=== PATIENT | male | born 1960 | race African-American/Black ===

== ENCOUNTER 2024-12-20 17:40 | Inpatient (IN) | payer BC ==
[2024-12-20] MEDS ORDERED: AMLODIPINE 10 MG TAB ONE (18:52)
[2024-12-20 19:25] LABS: Absolute Basophils 0.1 K/uL (0-0.5); Absolute Eosinophils 0.2 K/uL (0-0.5); Absolute Neutrophil 3.6 K/uL (1.8-8.0); Basophils % 0.8 % (0-1.3); Hemoglobin 16.8 g/dL (13.6-17.9); Lymphocytes % 29.8 % (15.3-44.8); MCH 31.4 pg (27.0-35.0); MCHC 34.4 g/dL (32.0-36.0); MCV 91.3 fL (80-100); MPV 9.3 fL (7.6-11.3); Monocytes % 14.7 % (3.3-12.3); Neutrophils % 51.7 % (41.7-73.7); Nucleated Red Blood Cells % 0.1 % (0-0); Platelets 275 thou/uL (152-406); RBC Red Blood Cell Count 5.36 M/uL (4.33-5.43); Red Cell Distribution Width 13.1 % (12.1-15.2)
[2024-12-20 19:39] LABS: ALT/SGPT 48 U/L (16-61); AST/SGOT 27 U/L (15-37); Albumin 3.9 g/dL (3.4-5.0); Albumin/Globulin Ratio 0.8 (1.1-1.8); Alkaline Phosphatase 128 U/L (45-117); Anion Gap 6.5 mEq/L (5.0-15.0); BUN Blood Urea Nitrogen 17 mg/dL (7-18); Bicarbonate 29 mEq/L (21-32); Bilirubin Total 0.5 mg/dL (0.2-1.0); Globulin 5.1 g/dL (2.3-3.5); Glomerular Filtration Rate 54 ml/min (=/>90); Glucose Level 75 mg/dL (74-106); Potassium 3.5 mEq/L (3.5-5.1); Sodium Level 135 mEq/L (136-145)
[2024-12-20 19:40] LABS: Bilirubin Direct < 0.2 mg/dL (0-0.2); Bilirubin Indirect, Calculated 0.3 mg/dL (0.2-0.8)
[2024-12-20 19:42] LABS: Troponin High Sensitivity 338.3 pg/mL (<58.9)
[2024-12-20] MEDS ORDERED: MORPHINE 4 MG/ML SYR ONE (20:40)
[2024-12-20] MEDS ORDERED: ENOXAPARIN 100 MG/ML SYR SQ ONE (20:44)
[2024-12-20] MEDS ORDERED: HYDRALAZINE HCL 20 MG/ML VIAL ONE (20:44)
[2024-12-20] MEDS ORDERED: ENOXAPARIN 30 MG/0.3 ML SQ ONE (20:44)
[2024-12-20] MEDS ORDERED: ONDANSETRON 4 MG/2 ML VIAL ONE (20:44)
--- NOTE | 2024-12-20 20:44 | EDPHYS ---
Physician Documentation [facility] Name: Jared Nicole Age: 64 yrs Sex: Male : 1960 Arrival Date: 12/20/2024 Time: 17:40 Bed 14 Private MD: ED Physician Dani Bennett HPI: 12/20 20:51 This 64 yrs old Black Male presents to ER via Ambulatory with complaints of Dizziness, rt wants BP check. 20:51 Patient with history of hypertension, previously on amlodipine presents to the ED with rt dizziness today when he was driving. Denies chest pain and states that the dizziness has resolved, has no symptoms currently. The patient denies chest pain, shortness of breath. Wishes to have his blood pressure checked, get back on his medicines. Denies other acute complaints at this time, symptoms are moderate in severity, no other aggravating or alleviating factors.. Historical: - Allergies: 18:34 No Known Allergies; ph - Home Meds: 18:30 amlodipine 10 mg tablet daily [Active]; ph - PMHx: 18:30 Hypertensive disorder; ph - Immunization history:: Adult Immunizations unknown. - Infectious Disease History:: Denies. - Family history:: not pertinent. - Social history:: Smoking status: Patient denies any tobacco usage or history of. ROS: 20:51 Constitutional: Negative for fever, chills, and weight loss, Cardiovascular: Negative rt for chest pain, palpitations, and edema, Respiratory: Negative for shortness of breath, cough, wheezing, and pleuritic chest pain, Abdomen/GI: Negative for abdominal pain, nausea, vomiting, diarrhea, and constipation, Skin: Negative for injury, rash, and discoloration, Neuro: Negative for headache, weakness, numbness, tingling, and seizure, 20:51 MS/extremity: Positive for Gout pain, negative for injury, 20:51 Neuro: Positive for dizziness, Negative for altered mental status, Exam: 20:51 Constitutional: This is a well developed, well nourished patient who is awake, alert, rt and in no acute distress. Head/Face: Normocephalic, atraumatic. Chest/axilla: Normal chest wall appearance and motion. Nontender with no deformity. No lesions are appreciated. Cardiovascular: Regular rate and rhythm with a normal S1 and S2. No gallops, murmurs, or rubs. Normal PMI, no JVD. No pulse deficits. Respiratory: Lungs have equal breath sounds bilaterally, clear to auscultation and percussion. No rales, rhonchi or wheezes noted. No increased work of breathing, no retractions or nasal flaring. Abdomen/GI: Soft, non-tender, with normal bowel sounds. No distension or tympany. No guarding or rebound. No evidence of tenderness throughout. Skin: Warm, dry with normal turgor. Normal color with no rashes, no lesions, and no evidence of cellulitis. MS/ Extremity: Pulses equal, no cyanosis. Neurovascular intact. Full, normal range of motion. Neuro: Awake and alert, GCS 15, oriented to person, place, time, and situation. Cranial nerves II-XII grossly intact. Motor strength 5/5 in all extremities. Sensory grossly intact. Cerebellar exam normal. Normal gait. 20:51 ECG was reviewed by the Attending Physician. Vital Signs: 18:32 BP 166 / 125; Pulse 81; Resp 18; Pulse Ox 100% on R/A; Weight 116.12 kg; Height 6 ft. 3 ph in. ; 18:49 BP 172 / 88; Pulse 91; Resp 18; Pulse Ox 100% on R/A; Pain 0/10; ld1 20:04 BP 147 / 113; Pulse 81; Resp 18; Pulse Ox 98% ; Pain 3/10; bm8 20:32 BP 165 / 129; Pulse 99; Resp 20; Temp 98.4; Pulse Ox 100% ; Pain 3/10; bm8 21:48 BP 140 / 90; Pulse 87; Resp 18; Temp 98.4; Pulse Ox 97% ; Pain 3/10; bm8 23:12 BP 146 / 86; Pulse 82; Resp 15; Temp 98.4; Pulse Ox 100% ; Pain 0/10; bm8 18:32 Body Mass Index 32.00 (116.12 kg, 190.5 cm) ph 18:49 Pain Scale: Adult ld1 20:04 Pain Scale: Adult bm8 20:32 Pain Scale: Adult bm8 21:48 Pain Scale: Adult bm8 23:12 Pain Scale: Adult bm8 Yari Coma Score: 19:21 Eye Response: spontaneous(4). Motor Response: obeys commands(6). Verbal Response: bm8 oriented(5). Total: 15. 20:04 Eye Response: spontaneous(4). Motor Response: obeys commands(6). Verbal Response: bm8 oriented(5). Total: 15. 20:32 Eye Response: spontaneous(4). Motor Response: obeys commands(6). Verbal Response: bm8 oriented(5). Total: 15. 21:48 Eye Response: spontaneous(4). Motor Response: obeys commands(6). Verbal Response: bm8 oriented(5). Total: 15. 23:12 Eye Response: spontaneous(4). Motor Response: obeys commands(6). Verbal Response: bm8 oriented(5). Total: 15. MDM: 18:28 Medical Screening Exam initiated rt 20:51 Differential diagnosis: Essential hypertension, hypertensive emergency, hypertensive rt nephropathy. Data reviewed: vital signs, nurses notes, lab test result(s), EKG. Consideration of Admission/Observation Patient was admitted/placed on observation. Management of patient was discussed with the following: Hospitalist: Agrees to admit. I considered the following discharge prescriptions or medication management in the emergency department Medications were administered in the Emergency Department. See MAR. Test considered but Not performed: CT: No headache, CT scan of the head is not indicated. Care significantly affected by the following chronic conditions: Hypertension. Counseling: I had a detailed discussion with the patient and/or guardian regarding the historical points, exam findings, and any diagnostic results supporting the discharge/admit diagnosis, lab results, the need for further work-up and treatment in the hospital. Response to treatment: the patient's symptoms have mildly improved after treatment. 12/20 18:34 Order name: Basic Metabolic Panel; Complete Time: 19:46 rt 03 18:34 Order name: CBC with Diff; Complete Time: 19:46 rt 0312 18:34 Order name: LFT's; Complete Time: 19:46 rt 03 18:34 Order name: Troponin HS; Complete Time: 19:46 rt 03 21:07 Order name: Urinalysis w/ reflexes EDMS 12/20 21:07 Order name: CBC with Automated Diff EDMS 12/20 21:07 Order name: CBC with Automated Diff EDMS 12/20 21:07 Order name: Comprehensive Metabolic Panel EDMS 12/20 21:07 Order name: Comprehensive Metabolic Panel EDMS 12/20 21:09 Order name: CBC with Automated Diff EDMS 12/20 21:09 Order name: Platelet Count EDMS 12/20 21:09 Order name: PTT, Activated Partial Thromb EDMS 12/20 21:10 Order name: CBC with Automated Diff EDMS 12/20 21:10 Order name: CBC with Automated Diff EDMS 12/20 21:10 Order name: CBC with Automated Diff EDMS 12/20 21:10 Order name: CBC with Automated Diff EDMS 12/20 21:10 Order name: Platelet Count EDMS 12/20 21:10 Order name: Platelet Count EDMS 12/20 21:10 Order name: Platelet Count EDMS 12/20 21:10 Order name: Platelet Count EDMS 12/20 21:10 Order name: Platelet Count EDMS 12/20 21:10 Order name: Platelet Count EDMS / 21:10 Order name: Platelet Count EDMS 12/20 21:10 Order name: Platelet Count EDMS 12/20 21:10 Order name: PTT, Activated Partial Thromb EDMS 12/20 21:10 Order name: PTT, Activated Partial Thromb EDMS / 21:10 Order name: PTT, Activated Partial Thromb EDMS / 21:10 Order name: PTT, Activated Partial Thromb EDMS / 21:10 Order name: PTT, Activated Partial Thromb EDMS /13 02:19 Order name: Troponin High Sensitivity EDMS /13 06:12 Order name: Troponin High Sensitivity EDMS /12 18:34 Order name: EKG; Complete Time: 18:34 rt 03/12 18:34 Order name: Cardiac monitoring; Complete Time: 18:56 rt 0312 18:34 Order name: EKG - Nurse/Tech; Complete Time: 18:56 rt 03/12 18:34 Order name: IV Saline Lock; Complete Time: 18:56 rt 03/12 18:34 Order name: Labs collected and sent; Complete Time: 18:56 rt 03/12 18:34 Order name: O2 Per Protocol; Complete Time: 18:49 rt 03/12 18:34 Order name: O2 Sat Monitoring; Complete Time: 18:56 rt EC:51 Rate is 92 beats/min. Rhythm is regular, Normal Sinus Rhythm with Occasional PVCs. QRS rt [place] is Normal. SD interval is normal. QRS interval is normal. QT interval is normal. No Q waves. Clinical impression: NSR w/ Non-specific ST/T Changes. Administered Medications: 18:56 Drug: amLODIPine PO 10 mg PO once Route: PO; ld1 19:23 Follow up: Response: No adverse reaction bm8 20:52 Drug: hydrALAZINE IVP 20 mg IVP once Route: IVP; Site: right antecubital; bm8 21:50 Follow up: Response: No adverse reaction bm8 20:52 Drug: Enoxaparin Sub-Q 1 mg/kg Sub-Q once Route: Sub-Q; Site: abdomen; bm8 21:50 Follow up: Response: No adverse reaction bm8 20:52 Drug: morphine IVP or IV 4 mg IVP once over 4 mins Route: IVP; Infused Over: 4 mins; bm8 Site: right antecubital; 21:49 Follow up: Response: No adverse reaction bm8 20:52 Drug: Ondansetron IVP 4 mg IVP once; over 2 minutes Route: IVP; Site: right antecubital;bm8 21:49 Follow up: Response: No adverse reaction bm8 Disposition Summary: 12/20/24 20:43 Hospitalization Ordered Notes: Hospitalization Status: Inpatient Admission rt Provider: Edinson Ramirez rt Condition: Fair rt Problem: new rt Symptoms: have improved rt Bed/Room Type: Standard rt Location: Telemetry/MedSurg (Inpatient)(12/21/24 11:19) 6 Room Assignment: [facility](12/21/24 11:19) [facility] Diagnosis - Hypertensive emergency rt - NSTEMI rt Forms: - Medication Reconciliation Form rt - SBAR form rt - Leadership Thank You Letter rt Critical care time excluding procedures: 20:51 Critical care time: Bedside Care: 30 minutes, Consultation: 5 minutes. Total time: 35 rt minutes Signatures: Dispatcher [employer] Shanthi Christian RN RN Atiya Laguerre RN RN ld1 Dani Bennett MD MD rt Ashley Morales 6 Aditi Marquez Kiran Moran RN RN bm8 Corrections: (The following items were deleted from the chart) 18:34 18:34 BASIC METABOLIC PANEL+C.LAB.BRZ ordered. EDMS EDMS 18:34 18:34 CBC+H.LAB.BRZ ordered. EDMS EDMS 18:34 18:34 HEPATIC FUNCTION+C.LAB.BRZ ordered. EDMS EDMS 18:34 18:34 Troponin High Sensitivity+C.LAB.BRZ ordered. EDMS EDMS 12/21 01:31 12/20 20:43 Telemetry/MedSurg (Inpatient) rt [facility] 12/21 01:12/20 20:43 rt [facility] 12/21 11:19 01:31 BR ER HOLD [place] [id number] 11:19 01:31 ERHOLD- [facility]6
--- NOTE | 2024-12-20 20:44 | ER ---
Nurse's Notes [facility] Name: Jared Nicole Age: 64 yrs Sex: Male : 1960 Arrival Date: 12/20/2024 Time: 17:40 Bed 14 Private MD: Diagnosis: Hypertensive emergency;NSTEMI Presentation: 12/20 18:27 Chief complaint: Patient states: Dizziness for about 2 days, has been out of his BP ph medication for approx 2 days, denies chest pain, headache, or SOB. Coronavirus screen: Vaccine status: Patient reports receiving the 2nd dose of the covid vaccine. Ebola Screen: No symptoms or risks identified at this time. Initial Sepsis Screen: Does the patient meet any 2 criteria? No. Patient's initial sepsis screen is negative. Does the patient have a suspected source of infection? No. Patient's initial sepsis screen is negative. Risk Assessment: Do you want to hurt yourself or someone else? Patient reports no desire to harm self or others. 18:27 Method Of Arrival: Ambulatory ph 18:32 Acuity: RYAN 3 ph Historical: - Allergies: 18:34 No Known Allergies; ph - Home Meds: 18:30 amlodipine 10 mg tablet daily [Active]; ph - PMHx: 18:30 Hypertensive disorder; ph - Immunization history:: Adult Immunizations unknown. - Infectious Disease History:: Denies. - Family history:: not pertinent. - Social history:: Smoking status: Patient denies any tobacco usage or history of. Screenin:34 Abuse screen: Denies threats or abuse. ph 18:49 [facility] ED Fall Risk Assessment (Adult) History of falling in the last 3 months, ld1 including since admission No falls in past 3 months (0 pts) Confusion or Disorientation No (0 pts) Intoxicated or Sedated No (0 pts) Impaired Gait No (0 pts) Mobility Assist Device Used No (0 pt) Altered Elimination No (0 pt) Score/Fall Risk Level 0 - 2 = Low Risk Oriented to surroundings, Hourly rounding (assess needs \T\ fall precautionary measures) done. Nutritional screening: No deficits noted. Tuberculosis screening: No symptoms or risk factors identified. Assessment: 18:49 General: Appears in no apparent distress. comfortable, Behavior is calm, cooperative, ld1 appropriate for age. Pain: Denies pain. Neuro: Level of Consciousness is awake, alert, obeys commands, Oriented to person, place, time, situation, Reports dizziness. Cardiovascular: Capillary refill < 3 seconds Patient's skin is warm and dry. Rhythm is sinus rhythm. Respiratory: Airway is patent Respiratory effort is even, unlabored. GI: Abdomen is flat, non-distended. : No signs and/or symptoms were reported regarding the genitourinary system. EENT: No signs and/or symptoms were reported regarding the EENT system. Derm: No signs and/or symptoms reported regarding the dermatologic system. Musculoskeletal: No signs and/or symptoms reported regarding the musculoskeletal system. 19:21 General: Appears in no apparent distress. comfortable, Behavior is calm, cooperative, bm8 appropriate for age. Pain: Complains of pain in right foot and left foot. Neuro: Level of Consciousness is awake, alert, obeys commands, Oriented to person, place, time, situation, Reports dizziness. Cardiovascular: Capillary refill < 3 seconds in bilateral fingers Patient's skin is warm and dry. Respiratory: Airway is patent Respiratory effort is even, unlabored, Respiratory pattern is regular, symmetrical. Musculoskeletal: Swelling present in right first toe and left first toe Reports pain in right foot and left foot states that he has gout and thinks a flair up is coming. 20:14 Reassessment: Patient appears in no apparent distress at this time. No changes from bm8 previously documented assessment. Patient and/or family updated on plan of care and expected duration. Pain level reassessed. Patient is alert, oriented x 3, equal unlabored respirations, skin warm/dry/pink. 20:32 Reassessment: Patient appears in no apparent distress at this time. Patient and/or bm8 family updated on plan of care and expected duration. Pain level reassessed. Patient is alert, oriented x 3, equal unlabored respirations, skin warm/dry/pink. Pain: Pain currently is 3 out of 10 on a pain scale. 21:48 Reassessment: Patient appears in no apparent distress at this time. Patient and/or bm8 family updated on plan of care and expected duration. Pain level reassessed. Patient is alert, oriented x 3, equal unlabored respirations, skin warm/dry/pink. Patient states feeling better. Patient states symptoms have improved. 23:12 Reassessment: Patient appears in no apparent distress at this time. Patient and/or bm8 family updated on plan of care and expected duration. Pain level reassessed. Patient is alert, oriented x 3, equal unlabored respirations, skin warm/dry/pink. Patient denies pain at this time. Patient states feeling better. Patient states symptoms have improved. Vital Signs: 18:32 BP 166 / 125; Pulse 81; Resp 18; Pulse Ox 100% on R/A; Weight 116.12 kg; Height 6 ft. 3 ph in. ; 18:49 BP 172 / 88; Pulse 91; Resp 18; Pulse Ox 100% on R/A; Pain 0/10; ld1 20:04 BP 147 / 113; Pulse 81; Resp 18; Pulse Ox 98% ; Pain 3/10; bm8 20:32 BP 165 / 129; Pulse 99; Resp 20; Temp 98.4; Pulse Ox 100% ; Pain 3/10; bm8 21:48 BP 140 / 90; Pulse 87; Resp 18; Temp 98.4; Pulse Ox 97% ; Pain 3/10; bm8 23:12 BP 146 / 86; Pulse 82; Resp 15; Temp 98.4; Pulse Ox 100% ; Pain 0/10; bm8 18:32 Body Mass Index 32.00 (116.12 kg, 190.5 cm) ph 18:49 Pain Scale: Adult ld1 20:04 Pain Scale: Adult bm8 20:32 Pain Scale: Adult bm8 21:48 Pain Scale: Adult bm8 23:12 Pain Scale: Adult bm8 Yari Coma Score: 19:21 Eye Response: spontaneous(4). Motor Response: obeys commands(6). Verbal Response: bm8 oriented(5). Total: 15. 20:04 Eye Response: spontaneous(4). Motor Response: obeys commands(6). Verbal Response: bm8 oriented(5). Total: 15. 20:32 Eye Response: spontaneous(4). Motor Response: obeys commands(6). Verbal Response: bm8 oriented(5). Total: 15. 21:48 Eye Response: spontaneous(4). Motor Response: obeys commands(6). Verbal Response: bm8 oriented(5). Total: 15. 23:12 Eye Response: spontaneous(4). Motor Response: obeys commands(6). Verbal Response: bm8 oriented(5). Total: 15. ED Course: 17:46 Patient arrived in ED. im 17:49 Dani Bennett MD is Attending Physician. rt 18:33 Triage completed. ph 18:33 Arm band placed on. ph 18:49 Atiya Laguerre, CHIKA is Primary Nurse. ld1 18:49 Patient has correct armband on for positive identification. Placed in gown. Bed in low ld1 position. Call light in reach. Side rails up X2. awake overnight monitor on. Pulse ox on. NIBP on. Door closed. Noise minimized. Warm blanket given. 18:49 No provider procedures requiring assistance completed. Inserted saline lock: 20 gauge ld1 in right antecubital area, using aseptic technique. Blood collected. Flushed with 10 mL NS. 19:42 Notified ED physician of a critical lab result(s). tropinin 338. bm8 20:43 Edinson Ramirez MD is Hospitalizing Provider. rt 23:12 Provided Education on: need for admission. bm8 23:12 Patient admitted, IV remains in place. bm8 Administered Medications: 18:56 Drug: amLODIPine PO 10 mg PO once Route: PO; ld1 19:23 Follow up: Response: No adverse reaction bm8 20:52 Drug: hydrALAZINE IVP 20 mg IVP once Route: IVP; Site: right antecubital; bm8 21:50 Follow up: Response: No adverse reaction bm8 20:52 Drug: Enoxaparin Sub-Q 1 mg/kg Sub-Q once Route: Sub-Q; Site: abdomen; bm8 21:50 Follow up: Response: No adverse reaction bm8 20:52 Drug: morphine IVP or IV 4 mg IVP once over 4 mins Route: IVP; Infused Over: 4 mins; bm8 Site: right antecubital; 21:49 Follow up: Response: No adverse reaction bm8 20:52 Drug: Ondansetron IVP 4 mg IVP once; over 2 minutes Route: IVP; Site: right antecubital;bm8 21:49 Follow up: Response: No adverse reaction bm8 Medication: 18:49 VIS not applicable for this client. ld1 Outcome: 20:43 Decision to Hospitalize by Provider. rt 23:12 Admitted to ER Hold. Please see [facility] for further documentation. bm8 23:12 Condition: stable 23:12 Instructed on the need for admit, Demonstrated understanding of follow-up care, medications, 12/21 12:09 Patient left the ED. ll1 Signatures: Shanthi Roca RN RN ph Kings Warren RN RN ll1 Atiya Laguerre RN RN ld1 Dani Bennett MD MD rt Lorraine Kim Brad RN RN bm8 Corrections: (The following items were deleted from the chart) 12/20 18:33 18:27 Chief complaint: Patient states: Dizziness for about 2 days, has been out of his ph BP medication for approx 2 years,denies chest pain, headache, or SOB ph
[2024-12-20] MEDS ORDERED: ACETAMINOPHEN 325 MG TABLET PO PRN (21:00)
[2024-12-20] MEDS ORDERED: HEPARIN/D5W 500 ML IV PRN (21:06)
--- NOTE | 2024-12-20 21:09 | P.HP ---
Certification for Inpatient Patient admitted to: Inpatient With expected LOS: >2 Midnights Practitioner: I am a practitioner with admitting privileges, knowledge of patient current condition, hospital course, and medical plan of care. Services: Services provided to patient in accordance with Admission requirements found in Title 42 Section 412.3 of the Code of Federal Regulations Patient History Date of Service: 12/20/24 Reason for admission: CP History of Present Illness: 64 yo male with past medical history of hypertension, brought to ER with dizziness and elevated blood pressure. Patient denies any fever or chills. Denies any chest pain or shortness of breath. Patient states that she has been dizzy for the last 3 to 4 days and ran out of his blood pressure medication. Denies any headache. Denies any nausea vomiting or diarrhea. He was also found to have elevated blood pressure. Denies any chest pain even with exertions. Patient was assessed in the ER and was found to have hypertensive urgency and elevated troponin and was admitted for further management. Allergies No Known Allergies Allergy (Unverified 12/20/24 22:28) Home medications list reviewed: Yes - Past Medical/Surgical History Past Medical History: Reviewed- Non-Contributory -: HTN Past Surgical History: Reviewed- Non-Contributory - Family History Family History: Reviewed- Non-Contributory - Social History Smoking Status: Never smoker Review of Systems 10-point ROS is otherwise unremarkable Physical Examination - Vital Signs Temperature: 97.6 F Blood Pressure: 140/92 Pulse: 78 Respirations: 18 Pulse Ox (%): 94 - Physical Exam General: Alert, In no apparent distress, Oriented x3 HEENT: Atraumatic, Normocephalic Neck: Supple, No Thyromegaly Respiratory: Clear to auscultation bilaterally, Normal air movement Cardiovascular: Regular rate/rhythm, Normal S1 S2 Capillary refill: <2 Seconds Gastrointestinal: Soft and benign, W/out hepatosplenomegaly Musculoskeletal: No clubbing, No swelling Integumentary: No rashes, No breakdown Neurological: Normal speech, Normal strength at 5/5 x4 extr, Normal reflexes 2+, Normal affect Lymphatics: No axilla or inguinal lymphadenopathy - Studies Laboratory Data (last 24 hrs) 12/20/24 12/20/24 18:58 18:58 WBC 6.90 Hgb 16.8 Hct 49.0 Plt Count 275 Sodium 135 L Potassium 3.5 BUN 17 Creatinine 1.46 H Glucose 75 Total Bilirubin 0.5 AST 27 ALT 48 Alkaline Phosphatase 128 H Assessment and Plan - Plan NSTEMI possibly type II due to hypertensive urgency Will trend cardiac enzymes Will monitor telemetry Started on aspirin and statin EKG did not show any acute changes suggestive of ischemia Patient denies any chest pain Will get an echocardiogram Cardiology consult Hypertensive urgency Antihypertensives titrated Monitor closely on telemetry Antihypertensives titrated Continue home medications and titrate as needed Hyperlipidemia Continue statin JOHN Monitor renal parameters Electrolytes monitor and replace accordingly GI/DVT prophylaxis Advanced directive full code Discharge Plan: Home Plan to discharge in: 48 Hours - Advance Directives Does patient have a Living Will: No Does patient have a Durable POA for Healthcare: No - Code Status/Comfort Care Code Status: Full Code Time Spent Managing Pts Care (In Minutes): 58
[2024-12-20 23:30] VITALS: BMI 31.4
[2024-12-21] MEDS ORDERED: ASPIRIN 81 MG CHEWABLE TABLET ONE ×2 (00:33→07:44)
[2024-12-21] MEDS: ASPIRIN EC 81 MG TAB PO SCH (00:42)
[2024-12-21 02:01] LABS: Absolute Eosinophils 0.1 K/uL (0-0.5); Absolute Lymphocytes (CBC) 1.1 K/uL (0.7-4.9); Absolute Monocytes 0.5 K/uL (0.1-1.3); Absolute Neutrophil 4.5 K/uL (1.8-8.0); Basophils % 0.6 % (0-1.3); Eosinophils % 1.5 % (0-4.4); Hematocrit 46.1 % (39.6-49.0); Hemoglobin 16.2 g/dL (13.6-17.9); Lymphocytes % 17.8 % (15.3-44.8); MCH 31.5 pg (27.0-35.0); MCHC 35.2 g/dL (32.0-36.0); MCV 89.3 fL (80-100); MPV 9.6 fL (7.6-11.3); Neutrophils % 72.1 % (41.7-73.7); Nucleated Red Blood Cells % 0.1 % (0-0); Platelets 270 thou/uL (152-406); RBC Red Blood Cell Count 5.16 M/uL (4.33-5.43); Red Cell Distribution Width 13.4 % (12.1-15.2)
[2024-12-21] MEDS ORDERED: ONDANSETRON 4 MG/2 ML VIAL IV PRN (02:45)
[2024-12-21 05:41] LABS: Absolute Basophils 0.1 K/uL (0-0.5); Absolute Eosinophils 0.2 K/uL (0-0.5); Absolute Lymphocytes (CBC) 1.2 K/uL (0.7-4.9); Absolute Monocytes 0.6 K/uL (0.1-1.3); Absolute Neutrophil 3.4 K/uL (1.8-8.0); Basophils % 2.2 % (0-1.3); Eosinophils % 2.9 % (0-4.4); Hematocrit 46.7 % (39.6-49.0); Hemoglobin 15.9 g/dL (13.6-17.9); Lymphocytes % 21.9 % (15.3-44.8); MCHC 34.2 g/dL (32.0-36.0); MCV 90.9 fL (80-100); MPV 8.9 fL (7.6-11.3); Monocytes % 11.5 % (3.3-12.3); Neutrophils % 61.5 % (41.7-73.7); Platelets 272 thou/uL (152-406); RBC Red Blood Cell Count 5.14 M/uL (4.33-5.43); Red Cell Distribution Width 13.4 % (12.1-15.2)
[2024-12-21 06:06] LABS: Albumin 3.2 g/dL (3.4-5.0); Albumin/Globulin Ratio 0.7 (1.1-1.8); Anion Gap 6.7 mEq/L (5.0-15.0); Bilirubin Total 0.6 mg/dL (0.2-1.0); Globulin 4.6 g/dL (2.3-3.5); Potassium 3.7 mEq/L (3.5-5.1); Protein, Total 7.8 g/dL (6.4-8.2)
[2024-12-21 06:12] LABS: Troponin High Sensitivity 298.2 pg/mL (<58.9)
[2024-12-21] MEDS ORDERED: ENOXAPARIN 40 MG/0.4 ML SQ ONE (07:44)
[2024-12-21] MEDS: ENOXAPARIN 40 MG/0.4 ML SQ SCH (08:40)
[2024-12-21] MEDS: AMLODIPINE 10 MG TAB PO SCH (08:40)
[2024-12-21] MEDS: FLU (Fluarix Triv) TS24-25(6MOS UP)/PF 45 MCG/0.5 ML Syringe IM ONE (09:30)
--- NOTE | 2024-12-21 09:30 | P.PN ---
Date of Service: 12/21/24 Subjective: Doing well overnight Denies chest pain, dyspnea ROS: 10 point ROS as noted above, otherwise negative Physical exam GEN: Alert, oriented, NAD HEENT: Normal conjunctiva, sclera anicteric CV: Regular rate and rhythm, no edema Pulm: Nonlabored respirations on room air ABD: Soft, nontender, nondistended MSK: No joint tenderness Integumentary: No rashes Neuro: Normal speech, normal affect Vitals reviewed Assessment: NSTEMI Hypertensive emergency Gout Plan: NSTEMI Hypertensive emergency Troponin trending down/flat Echocardiogram ordered and pending Patient denies chest pain/shortness of breath Has been on amlodipine 10 mg daily for many years now Await echo/cardiology recs Amlodipine continued, blood pressure improved Gout Only takes medications as needed DVT PPX: Lovenox Code status: Manager Compliance Spent Managing Pts Care (In Minutes): 35
[2024-12-21 12:26] VITALS: O2SAT 100
--- NOTE | 2024-12-21 13:44 | ECHO ---
HEIGHT: 6 ft 3 in WEIGHT: 251 lb 0 oz DATE OF STUDY: 12/21/[address]: Ced Pena NP 2-DIMENSIONAL: YES M.MODE: YES DOPPLER: YES COLOR FLOW: YES TDS: NO PORTABLE: YES DEFINITY: NO BUBBLE STUDY: NO DIAGNOSIS: NSTEMI/HYPERTENSION CARDIAC HISTORY: CATHERIZATION: SURGERY: PROSTHETIC VALVE: PACEMAKER: MEASUREMENTS (cm) DIASTOLIC (NORMALS) SYSTOLIC (NORMALS) IVSd 1.3 (0.6-1.2) LA Diam 4.8 (1.9-4.0) LVEF 54% LVIDd 3.9 (3.5-5.7) LVIDs 2.8 (2.0-3.5) %FS 28% LVPWd 1.5 (0.6-1.2) Ao Diam 3.5 (2.0-3.7) 2 DIMENSIONAL ASSESSMENT: RIGHT ATRIUM: NORMAL LEFT ATRIUM: MILD DILATED RIGHT VENTRICLE: NORMAL LEFT VENTRICLE: MILD LEFT VENTRICULAR HYPERTROPHY TRICUSPID VALVE: NORMAL MITRAL VALVE: NORMAL PULMONIC VALVE: NORMAL AORTIC VALVE: NORMAL PERICARDIAL EFFUSION: NONE AORTIC ROOT: NORMAL LEFT VENTRICULAR WALL MOTION: NORMAL. DOPPLER/COLOR FLOW: NORMAL. COMMENTS: 1. NORMAL LEFT VENTRICULAR SYSTOLIC FUNCTION, EJECTION FRACTION 60-65%, NORMAL WALL MOTION. 2. MODERATE PULMONARY HYPERTENSION (RIGHT VENTRICULAR SYSTOLIC PRESSURE 40-45mmHg). TECHNOLOGIST: YESY SAENZ
[2024-12-21] MEDS: HYDRALAZINE HCL 20 MG/ML VIAL IV PRN (19:55)
[2024-12-21] MEDS: ATORVASTATIN 40 MG TAB PO SCH (19:55)
[2024-12-22 05:55] LABS: MPV 9.5 fL (7.6-11.3); Platelets 261 thou/uL (152-406)
[2024-12-22 06:14] LABS: Magnesium 2.5 mg/dL (1.6-2.4); Phosphorus 3.1 mg/dL (2.5-4.9)
[2024-12-22] MEDS: POTASSIUM CL SA 10 MEQ TAB PO ONE (08:36)
[2024-12-22 09:05] LABS: Specific Gravity 1.013 (1.005-1.030); Urine Bilirubin NEGATIVE (Negative); Urine Blood Negative (Negative); Urine Clarity Clear (Clear); Urine Color Light-Yellow (Yellow); Urine Glucose NEGATIVE (Negative); Urine Ketones NEGATIVE (Negative); Urine Microscopic Reflex YN NO UMIC; Urine Nitrite NEGATIVE (Negative); Urine Protein NEGATIVE (Negative); Urine Urobilinogen Normal (Normal); Urine pH 7.5 (5.0-7.0)
[2024-12-22 12:08] VITALS: BP 155/93; TEMP 97.9
--- NOTE | 2024-12-22 13:23 | P.CNS ---
Date of Consult: 12/22/24 Chief Complaint: CP History of Present Illness: Patient with PMH of HTN, presented with high BP denies any cardiac symptoms. Allergies No Known Allergies Allergy (Unverified 12/20/24 22:28) Home medications list reviewed: Yes Home Medications: Amlodipine [Norvasc*] 1 tab PO DAILY 12/21/24 Aspirin 1 tab PO DAILY 12/21/24 - Past Medical/Surgical History -: HTN Review of Systems 10-point ROS is otherwise unremarkable Physical Examination Temp Pulse Resp BP Pulse Ox 97.9 F 68 18 155/93 H 96 12/22/24 12:00 12/22/24 12:00 12/22/24 12:00 12/22/24 12:00 12/22/24 12:00 General: Alert, In no apparent distress HEENT: Atraumatic, PERRLA, Mucous membr. moist/pink, EOMI, Sclerae nonicteric Neck: Supple, 2+ carotid pulse no bruit, No LAD, Without JVD or thyroid abnormality Respiratory: Clear to auscultation bilaterally, Normal air movement Cardiovascular: Regular rate/rhythm, Normal S1 S2 Gastrointestinal: Normal bowel sounds, No tenderness Musculoskeletal: No tenderness Integumentary: No rashes Neurological: Normal gait, Normal speech, Normal tone, Normal affect Lymphatics: No axilla or inguinal lymphadenopathy - Problems (1) HTN (hypertension) Current Visit: Yes Status: Acute Plan: recommend to add Lopressor 25 mg po BID Continue Norvasc 10 mg daily follow up with cardiology as outpatient. (2) Type 2 OR (myocardial infarction) Current Visit: Yes Status: Acute Plan: type 2 OR from Hypertensive urgency, no significant delta, echo is normal continue lipitor 40 mg daily outpatient follow up with cardiology for stress test.
--- NOTE | 2024-12-22 14:44 | EKG ---
Test Date: 2024-12-20 Test Time: 18:58:06 Radar Systems Engineer: SANTY MEASUREMENT RESULTS: Intervals: Rate: 92 AK: 194 QRSD: 86 QT: 402 QTc: 497 [place]: P: 30 AK: 194 QRS: 14 T: 132 INTERPRETIVE STATEMENTS: Sinus rhythm with occasional premature ventricular complexes and premature atrial complexes Minimal voltage criteria for LVH, may be normal variant Cannot rule out Anterior infarct, age undetermined T wave abnormality, consider lateral ischemia Abnormal ECG No previous ECG available for comparison Electronically Signed On 12-22-24 14:41:28 CDT by Rainer Rahman
--- NOTE | 2024-12-22 15:51 | P.DS ---
Admission Date: 12/20/24 Discharge Date: 12/22/24 Disposition: ROUTINE DISCHARGE Discharge Condition: GOOD Reason for Admission: CP Brief History of Present Illness: 64 yo male with past medical history of hypertension, brought to ER with dizziness and elevated blood pressure. Patient denies any fever or chills. Denies any chest pain or shortness of breath. Patient states that she has been dizzy for the last 3 to 4 days and ran out of his blood pressure medication. Denies any headache. Denies any nausea vomiting or diarrhea. He was also found to have elevated blood pressure. Denies any chest pain even with exertions. Patient was assessed in the ER and was found to have hypertensive urgency and elevated troponin and was admitted for further management. Hospital Course: Assessment: NSTEMI Hypertensive emergency Gout Patient presented to the emergency department for markedly elevated blood pressure with some dizziness. He was evaluated in the emergency department and found to have moderately elevated high-sensitivity troponins initially 338.3 but this trended down to 298.2 on rechecks, patient denied any chest pain, dyspnea or other symptoms, renal function was normal. Echocardiogram was performed which showed a normal LVEF of 60 to 65% with normal wall motion, moderate pulmonary hypertension with right ventricular systolic pressure 40 to 45 mmHg. Patient did well throughout his hospitalization his initial blood pressure where the 200s over 100s, his blood pressure is now in the 140s to 150s over 90, we are continuing his amlodipine 10 mg daily and adding metoprolol to tartrate 25 mg twice daily, he will need to follow-up with a operation shift supervisor in his hometown when he gets back. Continue taking baby aspirin daily as well. Vital Signs/Physical Exam: Temp Pulse Resp BP Pulse Ox 97.9 F 68 18 155/93 H 96 12/22/24 12:00 12/22/24 12:00 12/22/24 12:00 12/22/24 12:00 12/22/24 12:00 General: Alert, In no apparent distress, Oriented x3 HEENT: Atraumatic, PERRLA Neck: Supple, JVD not distended Respiratory: Clear to auscultation bilaterally, Normal air movement Cardiovascular: Regular rate/rhythm, Normal S1 S2 Gastrointestinal: Normal bowel sounds, No tenderness Musculoskeletal: No tenderness Integumentary: No rashes Neurological: Normal speech, Normal affect Laboratory Data at Discharge: WBC 5.50 thou/uL (4.3-10.9) 12/21/24 05:27 Hgb 15.9 g/dL (13.6-17.9) 12/21/24 05:27 Hct 46.7 % (39.6-49.0) 12/21/24 05:27 Plt Count 261 thou/uL (152-406) 12/22/24 04:59 APTT 39.3 SECONDS (27.2-37.4) H 12/21/24 08:40 Sodium 136 mEq/L (136-145) 12/21/24 05:27 Potassium 3.7 mEq/L (3.5-5.1) 12/21/24 05:27 BUN 14 mg/dL (7-18) 12/21/24 05:27 Creatinine 1.31 mg/dL (0.70-1.30) H 12/21/24 05:27 Glucose 118 mg/dL (74-106) H 12/21/24 05:27 Phosphorus 3.1 mg/dL (2.5-4.9) 12/22/24 04:59 Magnesium 2.5 mg/dL (1.6-2.4) H 12/22/24 04:59 Total Bilirubin 0.6 mg/dL (0.2-1.0) 12/21/24 05:27 AST 23 U/L (15-37) 12/21/24 05:27 ALT 37 U/L (16-61) 12/21/24 05:27 Alkaline Phosphatase 106 U/L (45-117) 12/21/24 05:27 Home Medications: Amlodipine [Norvasc*] 1 tab PO DAILY 12/21/24 Aspirin 1 tab PO DAILY 12/21/24 Metoprolol Tartrate [Lopressor*] 25 mg PO BID #120 tab 12/22/24 New Medications: Metoprolol Tartrate [Lopressor*] 25 mg PO BID #120 tab Physician Discharge Instructions: Patient presented to the emergency department for markedly elevated blood pressure with some dizziness. He was evaluated in the emergency department and found to have moderately elevated high-sensitivity troponins initially 338.3 but this trended down to 298.2 on rechecks, patient denied any chest pain, dyspnea or other symptoms, renal function was normal. Echocardiogram was performed which showed a normal LVEF of 60 to 65% with normal wall motion, moderate pulmonary hypertension with right ventricular systolic pressure 40 to 45 mmHg. Patient did well throughout his hospitalization his initial blood pressure where the 200s over 100s, his blood pressure is now in the 140s to 150s over 90, we are continuing his amlodipine 10 mg daily and adding metoprolol to tartrate 25 mg twice daily, he will need to follow-up with a operation shift supervisor in his hometown when he gets back. Continue taking baby aspirin daily as well. Diet: AHA Activity: Ad maya Followup: NONE,NONE [Primary Care Provider] - 1 Week Time spent managing pt's care (in minutes): 45
== END 2024-12-22 14:00 | disposition home or self-care (01) | DRG 281 ==
LOC: ER 17:40 → ERHOLD 21:00 → 2ND 12-21 11:36
PROVIDERS: ADMIT Family Medicine; ATTEND Hospitalist
DX: I16.1 Hypertensive emergency (principal); N17.9 Acute kidney failure, unspecified; I21.A1 Myocardial infarction type 2; I10 Essential (primary) hypertension; E78.5 Hyperlipidemia, unspecified; M10.9 Gout, unspecified; I27.20 Pulmonary hypertension, unspecified; Z79.82 Long term (current) use of aspirin; Z79.899 Other long term (current) drug therapy
CPT/HCPCS: 36415; 80048; 80053; 80076; 81003; 83735; 84100; 84484; 85025; 85049; 85730; 93005; 93306; 96372; 96374; 96375; 99285; J0360; J1650; J2405